=== PATIENT | male | born 1950 | race Caucasian/White ===

== ENCOUNTER → 2023-11-23 14:47 | Outpatient (REF) | payer MEDICARE, SELFPAY | LOC: RAD 14:47 | PROVIDERS: ATTENDING PHYSICIAN Nuclear Medicine Nuclear Cardiology; FAMILY PHYSICIAN Internal Medicine | DX: I25.10 Atherosclerotic heart disease of native coronary artery without angina pectoris (principal); I73.9 Peripheral vascular disease, unspecified | CPT/HCPCS: 93922; 93925 ==

== ENCOUNTER → 2023-11-28 12:05 | Outpatient (REF) | payer MEDICARE, SELFPAY | LOC: DHCBC/DCA 12:05 | PROVIDERS: ATTENDING PHYSICIAN Nuclear Medicine Nuclear Cardiology; FAMILY PHYSICIAN Internal Medicine | DX: I25.10 Atherosclerotic heart disease of native coronary artery without angina pectoris (principal); R94.39 Abnormal result of other cardiovascular function study; R07.9 Chest pain, unspecified | CPT/HCPCS: 78452; 93017; A9500; J2785 ==

== ENCOUNTER → 2024-01-09 17:14 | Outpatient (REF) | payer MEDICARE, SELFPAY | LOC: RAD 17:14 | PROVIDERS: ATTENDING PHYSICIAN Internal Medicine | DX: M89.8X1 Other specified disorders of bone, shoulder (principal) | CPT/HCPCS: 71046 ==

== ENCOUNTER → 2024-09-18 09:35 | Outpatient (REF) | payer MEDICARE, SELFPAY | LOC: HWRAD 09:35 | PROVIDERS: ATTENDING PHYSICIAN Internal Medicine | DX: R51.9 Headache, unspecified (principal) | CPT/HCPCS: 70450 ==

== ENCOUNTER 2024-11-11 08:36 | Emergency (ER) | payer OTHER, SELFPAY ==
--- NOTE | 2024-11-11 09:19 | ED.MUSCINJ ---
HPI-Injury
General
Chief Complaint: Fall
Time Seen by Provider: 11/11/24 09:07
History of Present Illness-Injury
Initial Injury comments:
73-year-old man presenting to the emergency department after a fall. Patient states that he slipped going down the steps landing on his back. He did hit his head. He did not lose consciousness. He is not on a blood thinner. He is complaining of
a small lump to the left side of his head and left posterior rib pain as well as left elbow pain. He does have full range of motion. No numbness tingling. No weakness. No headache.
Phy Exam
Physical Exam
Physical Exam:
GENERAL: no acute distress
HEENT: Small hematoma to left posterior occipital area, extraocular muscles intact, no signs of entrapment, dentition intact, no other obvious trauma
NECK: no midline tenderness, normal range of motion, no other obvious trauma
BACK: no midline tenderness, no other obvious trauma
CHEST: Tenderness to the left posterior lower ribs, no flail segment, no subcutaneous emphysema, no other obvious trauma
LUNGS: clear to auscultation bilaterally
CARDIOVASCULAR: regular rate and rhythm
ABDOMEN: soft, non-tender, no masses, no other obvious trauma
PELVIS: stable, no obvious injury
EXTREMITIES: moving all extremities, distal pulses intact, no other obvious trauma, tenderness over the left elbow, no obvious swelling or abrasion
NEUROLOGIC: awake, alert x 3, no focal deficits
Injury Course
Orders/Labs/Results
Orders:
Orders
11/11/24 09:18
CT Cervical Spine W/o Iv Contr Urgent
Comment:
Reason For Exam: fall
CT Chest W/o Iv Contrast Urgent
Comment:
Reason For Exam: left posterior 9-[address] Head W/o Iv Contrast Urgent
Comment:
Reason For Exam: fall
11/11/24 09:19
CR Elbow - Left Min 3 Views Urgent
Comment:
Reason For Exam: fall
11/11/24 09:30
Lidocaine [Lidocaine 4% Patch] 1 patch TOPICAL DAILY
Apply Lidocaine patch(s) to:: left posterior ribs
11/11/24 10:17
Incentive Spirometry [Rx Incentive Spirometry] [RESP] Urgent
Frequency: q1h while awake
MDM/Problems Addressed
Differential Diagnosis Includes:
Patient is a 73-year-old man presenting to the emergency department after a fall with a hematoma, left-sided posterior rib pain and left elbow pain. Vitals are unremarkable and exam does show a small hematoma to the left posterior occiput as well
as tenderness over his left posterior lower ribs. He does have some tenderness palpation over his left elbow though no obvious swelling or deformity. Given the fall and physical exam findings we will proceed with CT scans. Will obtain x-rays.
Will give lidocaine patch.
*Critical Care Note
Total Time (30-74mins, 75-104mins- exclusive of procedures): Not Applicable
Update Note
Update Note:
CT scan of the head per my interpretation with no obvious hemorrhage. Per the official read CT head and C-spine negative. CT chest does show left posterior ninth rib fracture. Patient given incentive spirometer and pulling good volumes. X-ray
per my interpretation with sail sign. Given the mild tenderness in the effusion with no obvious fracture will send patient home in a sling. He will follow-up with Ortho/PCP for further evaluation.
ED Attending Note
-
Portions of this chart may have been created with voice recognition software.� Occasional wrong word or��sound alike� substitutions may have occurred due to the inherent limitations of voice recognition software.
Discharge Plan
Departure
Patient Disposition: Home (Routine Discharge)
Date of Disposition: 11/11/24
Time of Disposition: 10:48
Patient with high blood pressure during this ER visit?: No
Discharge Problem:
Fracture of rib, Elbow pain
Instructions: Rib fracture or bruised rib - ED discharge instructions
Referrals:
Erick Waters MD [Family Provider] -
Activity Restrictions/Additional Instructions:
We discussed pain medications:
You may take Tylenol (also known as Acetaminophen) for pain.
You may take 1000mg Acetaminophen (two extra-strength tablets) per dose, which should be taken every 6-8 hours, or three times a day.
If you have normal strength Tylenol, you can take 650mg (two normal strength tablets) every 4-6 hours.
Do not take more than 3,000mg (3 grams) of Acetaminophen per day.
Never take more than as directed on the bottle.
You may also take Ibuprofen (also known as Motrin or Advil). If taking with Tylenol, alternate and take between dosing.
You may take 400-800mg of Ibuprofen per dose, which should be taken every 6-8 hours.
Do not take more than 3200mg (3.2 grams) of Ibuprofen per day.
You may also benefit from using a Lidocaine Patch (also known as 'Salon Pas'), which is an over the counter pain patch.
Place it just over the site of pain, avoiding areas of skin damage, as per instructions on the patch.
Please see your primary care doctor soon to be reevaluated and to make sure that you are improving. We have included information about establishing care with a doctor if you do not have one.
We talked about your evaluation, diagnosis, and treatment in the Emergency Department today. You must see your primary doctor for recheck and followup care in order to evaluate your progress or any changes. Have your doctor recheck the test
results/information from the ED visit. As discussed, RETURN to the ED if you develop worsening/changing symptoms or have no improvement in symptoms after the treatments provided.
Interventions
Interventions:
*Risk Screen - Suicide Last Done: 11/11/24 08:37
*General Assessment Last Done: 11/11/24 08:37
*Neglect/Abuse Screening Last Done: 11/11/24 08:37
ED- Fall Risk Assessment Last Done: 11/11/24 09:19
*ED COVID-19 Vaccine History Last Done: 11/11/24 09:19
ED-Musculoskeletal Assessment Last Done: 11/11/24 09:19
ED- Neurological Assessment Last Done: 11/11/24 09:19
ED-Skin Assessment Last Done: 11/11/24 09:19
Discharge Date and Time
Print Language: WALLISIAN
[2024-11-11] MEDS: LIDOCAINE 4% PATCH 1 PATCH TOPICAL (09:25)
[2024-11-11 10:53] VITALS: BP 131/82
== END 2024-11-11 11:00 | disposition home or self-care (01) ==
LOC: EMR 08:36
PROVIDERS: EMERGENCY PHYSICIAN Student in an Organized Health Care Education/Training Program; FAMILY PHYSICIAN Internal Medicine
DX: S22.32XA Fracture of one rib, left side, initial encounter for closed fracture (principal); S20.212A Contusion of left front wall of thorax, initial encounter; S00.03XA Contusion of scalp, initial encounter; M25.522 Pain in left elbow; W10.9XXA Fall (on) (from) unspecified stairs and steps, initial encounter
CPT/HCPCS: 99284; 70450; 71250; 72125; 73080

== ENCOUNTER → 2025-04-02 12:57 | Outpatient (REF) | payer OTHER, SELFPAY | LOC: RCS 12:57 | PROVIDERS: ATTENDING PHYSICIAN Nuclear Medicine Nuclear Cardiology; FAMILY PHYSICIAN Internal Medicine | DX: I25.10 Atherosclerotic heart disease of native coronary artery without angina pectoris (principal); R94.31 Abnormal electrocardiogram [ECG] [EKG]; R94.39 Abnormal result of other cardiovascular function study | CPT/HCPCS: 93306 ==

== ENCOUNTER → 2025-05-24 15:19 | Outpatient (REF) | payer OTHER, SELFPAY | LOC: RAD 15:19 | PROVIDERS: ATTENDING PHYSICIAN Internal Medicine | DX: S39.012A Strain of muscle, fascia and tendon of lower back, initial encounter (principal) | CPT/HCPCS: 72110 ==